=== PATIENT | female | born 1955 | race Caucasian/White ===

== ENCOUNTER → 2019-05-21 | Outpatient (CLI) | payer OTHER, SELFPAY | PROVIDERS: Family Provider Family Medicine; Visit Provider Family Medicine | DX: J18.9 Pneumonia, unspecified organism (principal) | CPT/HCPCS: 71046 ==

== ENCOUNTER 2019-12-07 09:16 | Outpatient (CLI) | payer BC, SELFPAY ==
--- NOTE | 2019-12-07 09:23 | MM_ITS ---
WS: [id number] Bilateral screening digital mammogram, 12/07/2019 Clinical Data: SCREENING Comparison: 11/28/2018, 11/09/2017, 09/21/2016, 08/30/2016, 08/25/2015, 08/14/2014, 07/30/2014, 04/10/2013, 04/2012, 02/24/2011, 02/18/2010. Findings: The breast parenchymal pattern shows fat replacement. No spiculated masses or clustered calcification s are seen. There are no secondary signs of carcinoma. MM/[id number] Impression: 1. Negative bilateral mammogram unchanged. 2. Recommend annual screening mammograms. BIRADS: 1-Negative FOLLOW UP: 1 Year Follow-up The CAD invoice checker was used.
== END 2019-12-07 09:17 | disposition home or self-care (01) ==
LOC: RADSHAW 09:22
PROVIDERS: PCP Family Medicine; Visit Provider Family Medicine
DX: Z12.31 Encounter for screening mammogram for malignant neoplasm of breast (principal)
CPT/HCPCS: 77067

== ENCOUNTER 2020-02-04 11:14 | Outpatient (CLI) | payer BC, SELFPAY ==
--- NOTE | 2020-02-04 11:21 | XR_ITS ---
WS: [id number] PROCEDURE: XR chest 2V* [id number] CLINICAL INFORMATION: COUGH COMPARISON: FINDINGS: Heart: Normal cardiac silhouette. Lungs: Moderate chronic emphysematous changes. No acute pulmonary infiltrates. No focal pneumonia. Ca lcified granuloma left lower lobe. Bones: Mild thoracic curve convex left. Mild thoracic kyphosis. XR/XR chest 2V* [id number] IMPRESSION: 1. Moderate chronic emphysematous changes. 2. No acute pulmonary infiltrates. 3. Mild thoracic curve convex left.
== END 2020-02-04 11:15 | disposition home or self-care (01) ==
LOC: WPI 11:15
PROVIDERS: PCP Family Medicine; Visit Provider Family Medicine
DX: R05 Cough (principal)
CPT/HCPCS: 71046

== ENCOUNTER → 2020-05-12 10:51 | Outpatient (BNVA) | payer BC, SELFPAY | PROVIDERS: PCP Family Medicine; Visit Provider Nurse Practitioner Family | DX: Z20.828 Contact with and (suspected) exposure to other viral communicable diseases (principal) | CPT/HCPCS: 87635 ==

== ENCOUNTER 2020-12-10 14:52 | Outpatient (CLI) | payer MEDICARE, OTHER, SELFPAY ==
--- NOTE | 2020-12-10 14:56 | MM_ITS ---
WS: [id number] BILATERAL DIGITAL SCREENING MAMMOGRAPHY WITH CAD CLINICAL INFORMATION: SCREENING HISTORY: Screening mammogram. No current complaints. COMPARISON: December 07, 2019 TECHNIQUE: Bilateral CC and MLO views. FINDINGS: Scattered fibroglandular densities bilaterally. No suspicious focal mass, asymmetry, calcifications, or architectural distortion. No evidence of malignancy. A few punctate calcifications left breast. MM/[id number] IMPRESSION: BI-RADS: 2-Benign FOLLOW UP: 1 Year Follow-up Recommend return to annual screening mammography.
== END 2020-12-10 14:53 | disposition home or self-care (01) ==
LOC: RADSHAW 14:55
PROVIDERS: PCP Family Medicine; Visit Provider Family Medicine
DX: Z12.31 Encounter for screening mammogram for malignant neoplasm of breast (principal)
CPT/HCPCS: 77067

== ENCOUNTER 2024-05-03 13:29 | Outpatient (CLI) | payer MEDICARE, OTHER, SELFPAY ==
--- NOTE | 2024-05-03 13:40 | CT_ITS ---
WS: [id number] CT CHEST ANGIOGRAPHY WITH REFORMATS HISTORY: ELEVATED D DIMER TECHNIQUE: Contiguous axial images are obtained through the chest during arterial injection of intrav enous contrast. Images are reconstructed to evaluate the pulmonary arteries. MIP imaging also reviewe d. All CT scans at [facility] use at least one of these dose optimization techniques: automat ed exposure control; mA and/or kV adjustment per patient size (includes targeted exams where dose is matched to clinical indication); or iterative reconstruction. CONTRAST: Omnipaque 350; 100 mL IV. DLP: 333.84 mGy.cm COMPARISON: None available. Good opacification of the central pulmonary artery. Pulmonary emboli are noted in the segmental branc hes of the lower lobes greatest on the RIGHT. There is probably a smaller emboli in the proximal LEFT upper lobe pulmonary artery. No RIGHT heart strain. Very mild enlargement of the LEFT heart. Moderate-sized bilateral layering pleural effusions. No pulmonary mass or nodule. There is mild pulmo nary edema. No mediastinal or hilar adenopathy. Small amount of ascites adjacent to the liver. There are several soft tissue deposits in the LEFT upp er quadrant. The largest measures 1.9 x 1.4 cm. Possibility of omental neoplastic disease should be c onsidered. Splenule within the differential but thought less likely. No destructive bone lesions. CT/CT angio chest PE protcl [id number] IMPRESSION: 1. Bilateral pulmonary emboli. Emboli in the segmental branches. No central pu lmonary emboli. 2. No RIGHT heart strain. 3. Moderate size bilateral layering pleural effusions. 4. Mild pulmonary edema. 5. Several soft tissue deposits in the LEFT upper quadrant with the largest me asuring 1.9 x 1.4 cm. Further evaluation of the abdomen and pelvis should be pe rformed to evaluate for possible omental disease. Metastatic nodules need to be excluded. Notified Mark Holm MD at 05/03/2024 2:48 PM.
[2024-05-03 14:04] LABS: Blood Urea Nitrogen 11 mg/dL (8-23); Glomerular Filtration Rate 83.2 mL/min (90-130)
[2024-05-03] MEDS: iohexol 350 mg/mL 500 mL Btl (per mL) IV (14:16)
== END 2024-05-03 13:30 | disposition home or self-care (01) ==
PROVIDERS: PCP Family Medicine; Visit Provider Family Medicine
DX: I26.94 Multiple subsegmental thrombotic pulmonary emboli without acute cor pulmonale (principal); R79.1 Abnormal coagulation profile; J90 Pleural effusion, not elsewhere classified; R19.02 Left upper quadrant abdominal swelling, mass and lump
CPT/HCPCS: 71275; 82565; 84520

== ENCOUNTER 2024-05-15 09:17 | Outpatient (CLI) | payer MEDICARE, OTHER, SELFPAY ==
--- NOTE | 2024-05-15 09:23 | CT_ITS ---
WS: [id number] CT ABDOMEN AND PELVIS WITH CONTRAST HISTORY: ABDOMINAL MASS TECHNIQUE: Imaging performed of the abdomen and pelvis with IV contrast. Single phase imaging of the abdomen. Coronal and sagittal reformats are submitted. All CT scans at [facility] use at [address] one of these dose optimization techniques: automated exposure control; mA and/or kV adjustment per patient size (includes targeted exams where dose is matched to clinical indication); or iterative re construction. IV CONTRAST: Omnipaque 350; 100 mL IV. Oral contrast: Yes. DLP: 553.96 mGy.cm COMPARISON: CT angiogram chest 05/03/2024 Lower thorax: Bilateral pleural effusions at the lung bases, RIGHT greater than LEFT. Effusions have significantly improved since 05/03/2024. Heart is normal size. Small lymph node adjacent to the peric ardium measures 7 mm. Liver/biliary system: Normal size with no intrahepatic dilatation. Gallbladder: Normal. No gallstones or wall thickening. No pericholecystic fluid. Pancreas: Fullness in the region of the pancreatic head. No pancreatic duct dilatation. No adjacent i nflammation. Spleen: Normal size spleen. No mass or infarct. Adrenal glands: Normal. Right kidney: Normal. Left kidney: Normal. Aorta: Mild atherosclerotic plaque. No aneurysm. Mesenteric arteries are well opacified. Extensive omental, mesenteric nodules and masses are noted. Largest areas of confluent omental caking is along the anterior abdomen extending into the pelvis. Largest transverse diameter is 20 cm. Oment al masslike configuration extends above the umbilicus deep into the pelvis. There are cystic and kayla d scattered hypervascular changes in the omentum. There are additional numerous mesenteric and omenta l deposits. Some of these deposits have necrotic centers. Retroperitoneal lymphadenopathy partially e ncasing the aorta and renal arteries. Deep within the pelvis there is additional solid and cystic mas s. This is similar to the omental carcinomatosis described in the abdomen. This is a large confluent mass measuring at least 13 x 11 x 10 mm. A separate uterus/ovaries is not identified. No history of a hysterectomy. Free fluid: There is a small amount of ascites. Small amount of ascites surrounds the liver and exten ds along the paracolic gutter. GI tract: Stomach is well distended with oral contrast. Towards the stomach antrum there is narrowing of the lumen. Lumen does not appear distensible. No small bowel obstruction. The distal colon is matt ng encased by the tumor in the pelvis. Abdominal wall: Fat containing umbilical hernia. Urinary bladder: Nondistended bladder. In part this is due to the large pelvic neoplastic mass. Mass is in contact with the bladder and may possibly be invading the bladder. Bones: Degenerative changes in the lumbar spine. Schmorl's node at L3. No definite destructive lytic or blastic changes. CT/CT abdomen pelvis w con* [id number] IMPRESSION: 1. Patient has advanced peritoneal carcinomatosis. Extensive carcinomatosis wi th large masslike areas of consolidation in the abdomen and also deep within th e pelvis. Additional innumerable mesenteric deposits. Additional retroperitonea l lymphadenopathy 2. Abnormal soft tissue thickening with under distention of the stomach antrum . Gastric neoplasm should be considered. 3. Distal colon is encased by tumor deep in the pelvis although there is no ob struction at this time. Invasion into the colon is likely. This may be the sour ce of the omental carcinomatosis or metastatic disease. 4. Suspect possible involvement of the urinary bladder. Uterus is not identifi ed and no history of a prior hysterectomy was provided. Uterus and ovaries may be encased also by the mass. Etiology of the carcinomatosis could be ovarian. 5. Small amount of ascites. 6. Small bilateral pleural effusions, improved since 05/03/2024. 7. Fullness in the region of the pancreatic head, indeterminate. 8. Etiologies to consider for this pattern of disease includes [employer] and GI. The cystic components within the carcinomatosis is often seen and with mucinous tu mors.
[2024-05-15] MEDS: iohexol 350 mg/mL 500 mL Btl (per mL) PO (09:38)
[2024-05-15] MEDS: iohexol 350 mg/mL 500 mL Btl (per mL) IV (10:29)
== END 2024-05-15 09:18 | disposition home or self-care (01) ==
PROVIDERS: PCP Family Medicine; Visit Provider Family Medicine
DX: C48.2 Malignant neoplasm of peritoneum, unspecified (principal); R93.3 Abnormal findings on diagnostic imaging of other parts of digestive tract; R19.00 Intra-abdominal and pelvic swelling, mass and lump, unspecified site
CPT/HCPCS: 74177